=== PATIENT | female | born 1980 | race Caucasian/White ===

== ENCOUNTER 2024-07-19 20:49 | Emergency (ER) | payer OTHER, SELFPAY ==
--- NOTE | ~2024-07-19 | XR_ITS ---
EXAMINATION: XR LUMBOSACRAL SPINE CLINICAL INFORMATION: right sided pain radiating to leg COMPARISON: None available. TECHNIQUE: Three views of the lumbosacral spine. FINDINGS: Lumbar vertebrae have normal height and alignment. No fracture. No focal bone lesion. Mild dextroscoliosis of lumbar spine Minimal degenerative lipping at the anterior endplates of lower thoracic and upper lumbar vertebrae. Mild lumbar disc height narrowing L4-L5. Mild facet joint arthrosis at lumbosacral junction. Sacroiliac joints are normal. XR/XR lumbar spine 2-3V IMPRESSION: 1. No acute abnormality. 2. Mild degenerative spondylosis of lumbar spine. 3. Mild dextroscoliosis of lumbar spine. Electronically signed by: Matthew Osorio MD 07/19/2024 09:31 PM [facility]
--- NOTE | 2024-07-19 20:54 | ED.GENADULT ---
HPI - General Adult General Chief complaint: Skin/Abscess/Foreign Body Stated complaint: right lower back and buttock pain Time Seen by Provider: 07/19/24 21:50 Source: patient and family () Mode of arrival: ambulatory Limitations: no limitations History of Present Illness ED Provider: KERA CRAWFORD PA-C HPI narrative: 44-year-old female with no significant pmhx presents to the ED today for evaluation of rash to her right buttock x1 month. Reports the area is itchy and painful, described as a burning sensation. Denies starting any new medications or antibiotics prior to onset of rash. Denies new soaps, lotions, detergents. Patient has been evaluated 3 separate times over the past month for same. She was initially told it was a yeast infection and was prescribed ketoconazole ointment without improvement. She was then told it was cellulitis. She completed a course of antibiotics for which she can not recall the name of. Most recently, she was diagnosed with a fungal infection in was prescribed mupirocin ointment without improvement. States the area is not improving. She was also trialing Benadryl at home for the itching. No history of similar. No other areas affected by rash. Denies known tick or insect bites. Her only known allergy is to aspirin. Denies fever, chills, headache, dizziness, vision changes, chest pain, sob, joint pain/swelling, nausea or vomiting. Related Data Previous Rx's ?Medication ?Instructions ?Recorded fluconazole 150 mg tablet 150 mg PO ONCE #1 tab 07/19/24 prednisone 20 mg tablet 40 mg (2 x 20 mg) PO DAILY 4 days 07/19/24 #8 tabs Allergies Allergy/AdvReac Type Severity Reaction Status Date / Time aspirin Allergy Unknown swelling, Verified 07/19/24 21:03 itchy Review of Systems Review of Systems: Constitutional: No fever, chills, fatigue, night sweats, weight changes ENT/Mouth: No ear pain, hearing loss, nasal congestion, sinus pain, rhinorrhea, sore throat Eyes: No eye pain, swelling, redness, vision changes, discharge Cardio: No chest pain, palpitations, NOLAN, orthopnea, peripheral edema Pulm: No SOB, cough, sputum, wheezing, dyspnea, hemoptysis GI: No nausea, vomiting, hematemesis, abdominal pain, diarrhea, constipation, hematochezia, melena : No irregular bleeding, dysuria, frequency, urgency, hesitancy, hematuria, flank pain, urinary flow changes, urinary incontinence or retention MSK: No back pain, neck pain, joint pain, myalgias Skin: No lesions, +rash Neuro: No weakness, numbness, paresthesias, LOC, dizziness, headache Psych: No anxiety/panic, depression, SI/HI, AH/VH All other systems reviewed and are negative. [facility] Past Medical History Attestation statement: The following information was validated with the patient. Source: old records reviewed and nursing notes reviewed Social History Social History Advance Directives: No Advance Directives Information Provided: No Physical Exam ED Vital Signs: Vital Signs - 24 hr 07/19/24 21:02 07/19/24 22:43 07/19/24 22:53 Temperature 98.0 F 97.4 F 97.4 F Pulse Rate 106 H 74 74 Respiratory Rate 18 18 18 Blood Pressure 107/77 119/57 L 119/57 L Pulse Oximetry 97 99 99 Oxygen Delivery Method Room Air Room Air Room Air BMI result Body Mass Index 34.2 Vital signs stable, afebrile General: Well appearing, in no acute distress. Skin: +See photo of right buttock below. No sloughing. Non dermatomal pattern. No target lesions. Spares palms, soles, web spaces, mucous membranes. no warmth. Head: Normocephalic, atraumatic. Cardiac: Chest wall symmetric. RRR Lungs: airway patent. Normal respiratory effort without accessory muscle use. CTA bilaterally. No rales, rhonchi, or wheezes.? Back: No midline spinous or paraspinal tenderness. No step off deformity. Ext: Upper and lower extremities atraumatic, without tenderness, deformity, swelling or erythema. Neuro: AOx3. Normal speech. Ambulating with steady gait. Psych: Appropriate mood and affect. Responds appropriately to questions. Course Course Course Narrative: This is a rapid medical exam performed by Liliana Gibson NP: Additional HPI, ROS, PE not included below will be deferred to primary provider. Patient is a 44-year-old female presenting to the ED with complaint of right lower back pain radiating to buttock. Plan: xray Reevaluation(s) Reevaluation #1: xr lumbar spine unremarkable. I do not have concern for lumbar etiology - xrays ordered from triage exam consistent with fungal infection. will trial diflucan. first dose given in ED, second dose sent to pharmacy. she has recieved solumedtrol. will send prednisone to pharmacy. referral to derm provided. Patient has remained stable throughout ED visit today. Discussed worrisome signs and symptoms and when to return to the ED. All questions answered at this time. Patient is agreeable with disposition and stable for discharge. Medications Administered Discontinued Medications Generic Name Dose Route Start Last Admin Trade Name Freq PRN Reason Stop Dose Admin Fluconazole 150 mg 07/19/24 22:40 07/19/24 23:00 Fluconazole 150 Mg Tablet PO 07/19/24 22:41 150 mg ONCE ONE Administration Methylprednisolone Sodium Succinate 60 mg 07/19/24 22:38 07/19/24 22:58 Methylprednisolone Sod Succ 125 Mg/2 Ml Vial IM 07/19/24 22:39 60 mg ONCE ONE Administration Medical Decision Making Medical Decision Making MDM Narrative: 44-year-old female with no significant past medical history presents to the ED today for evaluation of rash to her right buttock x1 month. tachycardic, vitals otherwise wnl. see physical exam portion for findings. Differential diagnosis includes contact/atopic/eczematous dermatitis, psoriasis, fungal/ yeast infection. History and exam findings not consistent with lyme/tick bourne illness, herpes zoster/simplex, scabies, HFM,?dangerous etiologies of rash such as SJS/TEN, or secondary dangerous causes such as petechial rashes from thrombocytopenia or rickettsial infections.? Plan at this time is to treat symptomatically, instruct to follow up with PCP or derm PRN. Differential Diagnosis Differential Diagnoses: The differential diagnosis associated with the presentation includes As above Admission/Observation Not indicated Independent Historian Clinical information obtained from an independent historian. History obtained from or confirmed by: Spouse External Record Review External record reviewed: Inpatient record Prescription Management I considered prescription management with: Other (Fluconazole) Social Determinants Patient?s care significantly limited by Social Determinants of Health including: Other Social Determinant of Health Critical Care Time Critical Care Time Critical Care Time: No Discharge Plan Discharge Clinical Impression: Fungal infection of skin Patient Disposition: Home, Self-Care Instructions: Fluconazole (By mouth) Additional Instructions: Your physical exam is concerning for a fungal skin infection. I have prescribed you a medication to take by mouth. You were given your 1st dose in the ED today. Take your 2nd dose in 3 days. I have sent this to the pharmacy for you. I have also sent a steroid to your pharmacy. Start this tomorrow as you have already received a dose in the ED today. Follow up with your primary care provider as needed. I have also sent you a referral to a [employer] [facility] [employer] fin[facility]. Call them to establish care. They will not call you. Return with new or worsening symptoms. In the case of an emergency call 911. Prescriptions: New prednisone 20 mg tablet 40 mg PO DAILY 4 Days Qty: 8 0RF fluconazole 150 mg tablet 150 mg PO ONCE Qty: 1 0RF Referrals: Keyonna Tariq PA-C [Physician Concrete Hopper Operator] - Rosamaria Delgadillo PA [Physician Concrete Hopper Operator] - Interventions: ED Discharge Assessment Last Done: 07/19/24 22:53 Discharge Date/Time: 07/19/24 23:13 Print Language: Citizen Of [place]
[2024-07-19 21:02] VITALS: BP 107/77; PULSE 106; RESP 18; TEMP 36.7; O2SAT 97; BMI 34.2
[2024-07-19 22:43] VITALS: BP 119/57; PULSE 74; RESP 18; TEMP 36.3; O2SAT 99
[2024-07-19 22:53] VITALS: BP 119/57; PULSE 74; RESP 18; TEMP 36.3; O2SAT 99
[2024-07-19] MEDS: methylPREDNISolone Sod Succ 125 MG/2 ML VIAL 60 MG IM (22:58)
[2024-07-19] MEDS: Fluconazole 150 MG TABLET PO (23:00)
== END 2024-07-19 23:13 | disposition home or self-care (01) ==
PROVIDERS: Emergency Provider Emergency Medicine
DX: B36.9 Superficial mycosis, unspecified (principal); R21 Rash and other nonspecific skin eruption
CPT/HCPCS: 72100; 96372; 99282; 99284; J2919

== ENCOUNTER 2024-08-03 21:08 | Emergency (ER) | payer OTHER, SELFPAY ==
[2024-08-03 21:55] VITALS: BP 108/81; PULSE 100; RESP 19; TEMP 36.6; O2SAT 99; BMI 32.9
[2024-08-04 03:15] VITALS: BP 133/63; PULSE 88; RESP 16; TEMP 36.4; O2SAT 99
--- NOTE | 2024-08-04 05:09 | ED_ITS ---
HPI - General Adult General Chief complaint: General Medical Stated complaint: Abscess on the right glute Time Seen by Provider: 08/04/24 04:50 Source: patient Mode of arrival: ambulatory Limitations: no limitations History of Present Illness ED Provider: HPI narrative: Patient has been having rash in the right gluteal area for last 2 months been treated with antifungal by mouth and local creams that much relief comes here for similar rash was seen here on 07/19 and was given prednisone and fluconazole rash got better now comes back with same Related Data Previous Rx's ?Medication ?Instructions ?Recorded fluconazole 150 mg tablet 150 mg PO ONCE #1 tab 07/19/24 prednisone 20 mg tablet 40 mg (2 x 20 mg) PO DAILY 4 days 07/19/24 #8 tabs terbinafine HCl 1 % topical cream 1 appl topical BID #30 grams 08/04/24 Allergies Allergy/AdvReac Type Severity Reaction Status Date / Time aspirin Allergy Unknown swelling, Verified 08/03/24 21:59 itchy latex Allergy Unknown Verified 08/03/24 21:59 Review of Systems Review of Systems: Yes all other systems are reviewed and are negative [facility] Social History Social History Advance Directives: No Advance Directives Information Provided: Yes Do you have a plan to hurt others: No Plan Physical Exam ED Vital Signs: Vital Signs - 24 hr 08/03/24 21:55 08/04/24 03:15 Temperature 98 F 97.5 F Pulse Rate 100 88 Respiratory Rate 19 16 Blood Pressure 108/81 133/63 Pulse Oximetry 99 99 Oxygen Delivery Method Room Air Room Air BMI result Body Mass Index 32.9 Appearance: Alert. Oriented X3. No acute distress ENT: Pharynx normal. Oral Mucosa moist Neck: Normal inspection. Neck supple. CVS: Normal heart rate and rhythm. Pulses normal. Respiratory: No respiratory distress. Equal air entry bilateral, no wheezing/rales/rhonchi Abdomen: Soft and nontender. Bowel sounds are present, no mass palpable, no CVA tenderness Skin: Skin warm and dry. Tinea rash right gluteal area Extremities: No lower extremity edema. No calf tenderness Neuro: Oriented X 3. No motor deficit. Medical Decision Making Medical Decision Making [facility] Narrative: Patient's clinically with tinea versicolor rash feel fluconazole p.o. will be started on Lamisil cream twice a day for 2 weeks Discharge Plan Discharge Clinical Impression: Tinea versicolor Patient Disposition: Home, Self-Care Instructions: Tinea Versicolor (ED) Additional Instructions: apply local antifungal cream as prescribed for at least 2 weeks Follow with your PCP if not better Prescriptions: New terbinafine HCl 1 % cream 1 appl topical BID Qty: 30 0RF No Action prednisone 20 mg tablet 40 mg PO DAILY 4 Days Qty: 8 0RF fluconazole 150 mg tablet 150 mg PO ONCE Qty: 1 0RF Print Language: Cymro
[2024-08-04 05:22] VITALS: BP 133/63; PULSE 88; RESP 16; TEMP 36.4; O2SAT 99
== END 2024-08-04 05:24 | disposition home or self-care (01) ==
PROVIDERS: Emergency Provider Internal Medicine
DX: B36.0 Pityriasis versicolor (principal); R21 Rash and other nonspecific skin eruption
CPT/HCPCS: 99283; 99284